=== PATIENT | female | born 1990 | race Caucasian/White ===

== ENCOUNTER 2018-10-25 01:10 | Observation (INO) | payer MEDICAID, OTHER ==
[~2018-10-25] VITALS: Ht 162.6 cm; Wt 95.3 kg
[2018-10-25] MEDS ORDERED: PREN-380 PO (01:58)
[2018-10-25 02:00] VITALS: BP 112/70
== END 2018-10-25 02:35 | disposition home or self-care (01) ==
LOC: MLD 01:10
PROVIDERS: ADMIT Obstetrics & Gynecology; ATTEND Obstetrics & Gynecology
DX: O26.899 Other specified pregnancy related conditions, unspecified trimester (principal); R10.9 Unspecified abdominal pain; Z3A.00 Weeks of gestation of pregnancy not specified
CPT/HCPCS: 81000; G0378